=== PATIENT | female | born 1960 | race Caucasian/White ===

== ENCOUNTER 2021-09-09 18:06 | Emergency (ER) | payer OTHER, SELFPAY ==
--- NOTE | 2021-09-09 18:46 | XRR_ITS ---
PROCEDURE INFORMATION: Exam: XR Chest Exam date and time: 09/09/2021 6:46 PM Age: 61 years old Clinical indication: Shortness of breath; Additional info: SOB TECHNIQUE: Imaging protocol: XR of the chest. Views: 1 view. COMPARISON: No relevant prior studies available. FINDINGS: Lungs: Unremarkable. No consolidation. Pleural spaces: Unremarkable. No pleural effusion. No pneumothorax. Heart/Mediastinum: Mild cardiomegaly. Bones/joints: Unremarkable. XR/XR chest 1V portable [id number] IMPRESSION: Mild cardiomegaly, negative for infiltrate
[2021-09-09 19:11] VITALS: BP 132/84; PULSE 86; RESP 21; TEMP 36.6; O2SAT 94
[2021-09-09 20:47] VITALS: BP 138/89; PULSE 72; RESP 20; TEMP 36.9; O2SAT 95
--- NOTE | 2021-09-09 20:51 | ED_ITS ---
HPI - COVID General: Chief Complaint: COVID symptoms Stated Complaint: Covid +\SOB\Fever Time Seen by Provider: 09/09/21 20:41 Source: patient Mode of arrival: ambulatory Limitations: no limitations Triage information: Has fever, cough or shortness of breath . Exposure to COVID + person last 14 days History of Present Illness: HPI Narrative: 61-year-old female states that she has been having cough congestion fever body aches since Wednesday she states she had tested positive for COVID she states her body aches worsening today. She had some slight dyspnea she is in no distress here no hypoxia here she denies any worsening improving factors. COVID 19 common symptoms: positive chills, non-productive cough, body aches and headache(s); negative throat pain, nausea, vomiting or diarrhea COVID 19 other sytmptoms: negative chest pain COVID Results: No Data to Display Review of Systems Const: Reports: chills and body aches Eyes: Denies: blurry vision or eye discomfort ENMT: Denies: throat pain or dental pain Card: Denies: chest pain Resp: Reports: non-productive cough GI: Denies: abdominal pain, nausea, vomiting or diarrhea : Denies: dysuria Musc: Denies: neck pain or back pain Skin/Breast: Denies: rash Neuro: Reports: headache(s) Psych: Denies: depression Soren/Lymph: Denies: easy bruising All/Imm: Denies: urticaria Physical Exam Const: COMMON NORMALS: no acute distress, patient oriented x3 and healthy appearing HENMT: COMMON NORMALS: normocephalic and atraumatic HEAD & SCALP: normocephalic and atraumatic Eye: COMMON NORMALS: Equal, round and reactive pupils present and EOMs intact bilaterally PUPIL: Yes Equal, round and reactive pupils present Neck/C-Spine: COMMON NORMALS: full ROM and supple Chest: COMMONS NORMALS: normal inspection of the chest and normal palpation of entire chest wall Resp: COMMON NORMALS: normal respiratory effort, No retractions, No use of accessory muscles and clear to auscultation bilaterally AUSCULTATION: clear to auscultation bilaterally Cardio: COMMON NORMALS: regular rate, regular rhythm and No murmurs present (Cardio) RATE: regular rate RHYTHM: regular rhythm GI: COMMON NORMALS: Normal to inspection, nondistended, normoactive bowel sounds present, Soft to palpation, non-tender and no masses PALPATION: Yes Soft to palpation Extremity: COMMON NORMALS: normal to inspection and full ROM Neuro: COMMON NORMALS: patient oriented x3, moves all extremities and no focal motor deficits Psych: COMMON NORMALS: mental status grossly normal, Normal thought process present and cooperative THOUGHT PROCESS: Normal thought process present Skin: COMMON NORMALS: no rashes or lesions noted and no wounds GENERAL SKIN EXAM: no rashes or lesions noted Course Vital Signs: Vital signs: Vital Signs Temperature 98.5 F 09/09/21 20:47 Pulse Rate 72 09/09/21 20:47 Respiratory Rate 20 H 09/09/21 20:47 Blood Pressure 138/89 09/09/21 20:47 Pulse Oximetry 95 09/09/21 20:47 MDM - COVID MDM Narrative: Medical decision making narrative: Patient presents here with cough fever headache all likely from COVID she is well-appearing here with no distress no signs of hypoxia we will give her Decadron albuterol inhaler we will set her up for monoclonal antibody infusion she is stable for discharge she is to return if worsening she understands agrees to plan. COVID Results: No Data to Display Discharge Plan Discharge Patient Disposition: Home Clinical Impression: COVID-19 Condition: Stable Prescriptions: New albuterol sulfate 90 mcg/actuation HFA aerosol inhaler 2 inh INHALATION Q6H PRN (Reason: shortness of breath or wheezing) Qty: 8 RF: 0 Discharge Orders: Discharge ED (Routine); Ordered 09/09/21 Ordered By: Cecelia Dominguez Other Ambulatory Orders: Request for MCA (Routine) Timeframe: 1 Day Facility: [facility] - Location: Out[facility] Ordered By: Cecelia Dominguez Discharge Diet: Advance as tolerated Discharge Activity: Resume usual activity Patient Instructions: COVID-19 (Coronavirus Disease 2019) (ED) Coding Level of Care Code 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
[2021-09-09] MEDS: dexamethasone 4 mg Tablet 10 MG PO (21:08)
[2021-09-09] MEDS: naproxen 500 mg Tablet PO (21:09)
[2021-09-09 23:17] VITALS: PULSE 87; RESP 15; O2SAT 95
[2021-09-09 23:30] VITALS: BP 118/76; PULSE 71; RESP 18; TEMP 36.9; O2SAT 95
== END 2021-09-09 23:32 | disposition home or self-care (01) ==
PROVIDERS: Emergency Provider Emergency Medicine
DX: U07.1 COVID-19 (principal)
CPT/HCPCS: 71045; 99283; J8540

== ENCOUNTER 2021-09-15 09:26 | Outpatient (CLI) | payer SELFPAY ==
[2021-09-15 09:40] VITALS: BP 140/82; PULSE 57; RESP 20; TEMP 36.4; O2SAT 98; BMI 34.3
[2021-09-15 10:50] VITALS: BP 119/79; PULSE 58; RESP 19; TEMP 37; O2SAT 98
[2021-09-15 11:50] VITALS: BP 125/80; PULSE 53; RESP 18; TEMP 36.6; O2SAT 99
== END 2021-09-15 09:27 | disposition home or self-care (01) ==
LOC: OPS 09:31
PROVIDERS: Visit Provider Emergency Medicine
DX: U07.1 COVID-19 (principal)
CPT/HCPCS: 96365

== ENCOUNTER 2021-12-23 08:13 | Outpatient (CLI) | payer OTHER, SELFPAY ==
--- NOTE | 2021-12-23 08:23 | MM_ITS ---
WS: [id number] SCREENING DIGITAL BREAST TOMOSYNTHESIS MAMMOGRAM WITH CAD HISTORY: SCREENING COMPARISON: None available. Bilateral CC and MLO with tomosynthesis and synthetic mammography submitted. Computer aided detection analyzed. Breast composition: There are scattered areas of fibroglandular density. Well-circumscribed 6 mm nodu le with a peripheral calcification in the upper-outer quadrant of RIGHT breast at a middle depth. The re is a biopsy clip adjacent but not within this nodule. Recommend further evaluation. There are no p rior studies available for comparison. If these become available additional imaging and may not be ne cessary. MM/[place] [id number] IMPRESSION: BI-RADS: 0-Incomplete: Need additional imaging evaluation FOLLOW UP: Need Additional Imaging RIGHT breast ultrasound, limited. Upper outer quadrant RIGHT breast.
== END 2021-12-23 08:14 | disposition home or self-care (01) ==
LOC: RADSHAW 08:14
PROVIDERS: Visit Provider Physician Assistant
DX: Z12.31 Encounter for screening mammogram for malignant neoplasm of breast (principal)
CPT/HCPCS: 77063; 77067

== ENCOUNTER 2022-01-28 14:28 | Outpatient (CLI) | payer OTHER, SELFPAY ==
--- NOTE | 2022-01-28 14:38 | US_ITS ---
WS: [id number] ULTRASOUND BREAST RIGHT TECHNIQUE: Ultrasound right breast focused area of concern. CLINICAL INFORMATION: ABNORMAL MAMMO COMPARISON: December 23, 2021 FINDINGS: Ultrasound RIGHT breast at the 9 to 12:00 position. Simple cyst at the 10:00 position measuring 6 x 4 x 3 mm and at the 11:00 position measuring 6 x 7 x 4 mm. These have a benign appearance. No suspicio us lesions to target for biopsy. Recommend return to annual screening mammography. US/US breast RT limited* [id number] IMPRESSION: BI-RADS 2 benign Recommend return to annual screening mammography.
== END 2022-01-28 14:29 | disposition home or self-care (01) ==
LOC: RAD 14:35
PROVIDERS: Visit Provider Physician Assistant
DX: R92.8 Other abnormal and inconclusive findings on diagnostic imaging of breast (principal)
CPT/HCPCS: 76642

== ENCOUNTER 2022-12-25 13:31 | Outpatient (CLI) | payer OTHER, SELFPAY ==
--- NOTE | 2022-12-25 13:41 | MM_ITS ---
WS: [id number] BILATERAL 3D TOMOSYNTHESIS DIGITAL SCREENING MAMMOGRAPHY WITH CAD CLINICAL INFORMATION: SCREENING HISTORY: Screening mammogram. No current complaints. COMPARISON: 2021 TECHNIQUE: Bilateral CC and MLO views. FINDINGS: Scattered fibroglandular densities bilaterally. No suspicious focal mass, asymmetry, calcifications, or architectural distortion. No evidence of malignancy. Biopsy clip RIGHT breast. Ovoid nodules RIGHT breast are unchanged. MM/[place] [id number] IMPRESSION: BI-RADS: 2-Benign FOLLOW UP: 1 Year Follow-up Recommend return to annual screening mammography.
== END 2022-12-25 13:32 | disposition home or self-care (01) ==
LOC: RAD 13:35
PROVIDERS: PCP Physician Assistant; Visit Provider Physician Assistant
DX: Z12.31 Encounter for screening mammogram for malignant neoplasm of breast (principal)
CPT/HCPCS: 77063; 77067

== ENCOUNTER 2024-01-05 13:54 | Outpatient (CLI) | payer OTHER, SELFPAY ==
--- NOTE | 2024-01-05 14:02 | MM_ITS ---
WS: [id number] Bilateral screening 3D tomosynthesis digital mammogram, 01/05/2024 Clinical Data: SCREENING Comparison: 12/25/2022, 12/23/2021 Findings: The breast parenchymal pattern shows fibroglandular tissue. No spiculated masses or clustered calcifi cations are seen. There are no secondary signs of carcinoma. There is a biopsy clip in the right bozena ast. MM/[place] [id number] Impression: 1. Negative bilateral mammogram unchanged. 2. Recommend annual screening mammograms. BIRADS: 1-Negative FOLLOW UP: 1 Year Follow-up The CAD tip length checker was used.
== END 2024-01-05 13:55 | disposition home or self-care (01) ==
LOC: RAD 13:54
PROVIDERS: PCP Physician Assistant; Visit Provider Physician Assistant
DX: Z12.31 Encounter for screening mammogram for malignant neoplasm of breast (principal)
CPT/HCPCS: 77063; 77067

== ENCOUNTER 2025-01-06 18:02 | Emergency (ER) | payer OTHER, SELFPAY ==
[2025-01-06 18:15] VITALS: BP 126/84; PULSE 77; RESP 17; TEMP 36.8; O2SAT 94; BMI 36.8
--- NOTE | 2025-01-06 19:01 | XRR_ITS ---
PROCEDURE INFORMATION: Exam: XR Chest Exam date and time: 01/06/2025 7:34 PM Age: 64 years old Clinical indication: Shortness of breath; Additional info: SOB TECHNIQUE: Imaging protocol: Radiologic exam of the chest. Views: 1 view. COMPARISON: CR XR chest 1V portable [id number] 09/09/2021 7:04 PM FINDINGS: Lungs: Lungs are clear. Pleural spaces: There is no pleural effusion or pneumothorax. Heart/Mediastinum: There is mild enlargement of the cardiac silhouette. Bones/joints: Bones are unremarkable. XR/XR chest 1V portable [id number] IMPRESSION: No acute findings.
--- NOTE | 2025-01-06 23:57 | ED_ITS ---
HPI - General Adult General: Chief complaint: General Medical Stated complaint: generalized pain, cough, wheezing Time Seen by Provider: 01/06/25 22:24 Source: patient Mode of arrival: ambulatory Limitations: no limitations History of Present Illness: Patient is a 64-year-old female that presents to the emergency department with frontal headache, congestion, cough, wheezing that has been going on for the past 5 to 6 days. She denies any known fever. She denies any significant ear pain. She does report pain and tenderness along her forehead and cheekbone region. She denies any nausea or vomiting. She does report some abdominal aches when she coughs but denies any tenderness otherwise. She presents to the emergency department for further evaluation and treatment. Associated symptoms: Reports headache(s) (Frontal); Deny chest pain, dyspnea, nausea, rash or vomiting Related Data Previous Rx's ?Medication ?Instructions ?Recorded albuterol sulfate 90 mcg/actuation 2 inh inhalation .q 4-6h PRN 01/07/25 aerosol inhaler (Ventolin HFA) shortness of breath or wheezing #6.7 grams amoxicillin 875 mg-potassium 1 tab PO BID #19 tabs clavulanate 125 mg tablet Allergies Allergy/AdvReac Type Severity Reaction Status Date / Time No Known Allergies Allergy Verified 09/09/21 23:14 Review of Systems General: Reports: 10 or more systems reviewed and unremarkable except in HPI and below Const: Reports: chills; Denies: fever(s) Eyes: Denies: change in vision ENMT: Reports: nasal congestion and sinus pain; Denies: throat pain Card: Denies: chest pain Resp: Reports: productive cough and wheezing; Denies: dyspnea GI: Reports: abdominal pain; Denies: nausea or vomiting : Denies: flank pain, difficulty voiding or dysuria Musc: Reports: neck pain and back pain (Achy); Denies: muscle weakness Skin/Breast: Denies: rash or erythema Neuro: Reports: headache(s) (Frontal); Denies: numbness in extremities or weakness in extremities Psych: Denies: anxiety Endo: Denies: polyuria or polydipsia Soren/Lymph: Denies: easy bruising or petechiae All/Imm: Denies: tongue swelling or facial swelling [facility] ED PFSH: Medical History (Updated 01/07/25 @ 00:10 by CARMELA Sanchez) Bronchitis Social History (Updated 01/07/25 @ 00:04 by CARMELA Sanchez) Smoking and tobacco/nicotine status: never used tobacco/nicotine Physical Exam Const: COMMON NORMALS: no acute distress, no limitations and alert GENERAL APPEARANCE: cooperative HENMT: COMMON NORMALS: normocephalic, atraumatic, external ears normal and Normal external nose present HEAD & SCALP: normocephalic and atraumatic FACE & SINUS: normal facial exam and sinus tenderness frontal and maxillary NOSE: Normal external nose present EXTERNAL EAR: Yes external ears normal THROAT: posterior oropharynx normal Eye: COMMON NORMALS: conjunctivae normal CONJUNCTIVA: Yes conjunctivae normal Neck/C-Spine: COMMON NORMALS: full ROM, supple and no meningeal signs GENERAL: No tender Resp: COMMON NORMALS: normal respiratory effort AUSCULTATION: no crackles, no rales and wheezes GI: COMMON NORMALS: Normal to inspection, nondistended, normoactive bowel sounds present, Soft to palpation and non-tender (There is no abdominal tenderness on exam) PALPATION: Yes Soft to palpation : COMMON NORMALS: Yes no CVA tenderness BLADDER/KIDNEY EXAM: Yes no CVA tenderness Back/Pelvis: COMMON NORMALS: no CVA tenderness Extremity: COMMON NORMALS: normal to inspection, full ROM, no calf tenderness and no pedal edema Neuro: SENSORIUM/ORIENTATION: Yes alert MENINGEAL SIGNS: Yes no meningeal signs Psych: COMMON NORMALS: cooperative Skin: COMMON NORMALS: no rashes or lesions noted and no petechiae GENERAL SKIN EXAM: no rashes or lesions noted Course Vital Signs: Vital signs: Vital Signs Temperature 98.3 F 01/06/25 18:15 Pulse Rate 77 01/06/25 18:15 Respiratory Rate 17 01/06/25 18:15 Blood Pressure 126/84 01/06/25 18:15 Pulse Oximetry 94 01/06/25 18:15 Oxygen Delivery Me thod Room Air 01/06/25 18:15 [facility] - General Adult Medical Decision Making Patient was advised of the exam and imaging findings. Thankfully, the patient does not have any pneumonia on the x-ray. She does have some some wheezing noted on exam. She also has sinus tenderness over the frontal and maxillary sinuses. I am concerned she may have bacterial sinusitis. She also has acute bronchitis. I recommended she use the medications as directed, the albuterol inhaler as directed and follow-up with her primary care provider in 1 week for recheck. I advised that she use qtbr-zgb-dpobfan Tylenol or ibuprofen for the body aches and return to the emergency department with any worsening symptoms. The patient expressed understanding. Differential Diagnosis Acute sinusitis, pneumonia, acute bronchitis, myalgia, viral respiratory infection Lab Data Radiology Impressions Chest X-Ray 01/06/25 19:01 IMPRESSION: No acute findings. All radiology interpretation(s) finalized by discharge Critical Care Time Critical Care Time: Critical Care Time: No Discharge Plan Discharge Patient Disposition: Home Clinical Impression: Acute bacterial sinusitis, Myalgia, Wheezing Acute bronchitis Qualifiers: Bronchitis organism: unspecified organism Qualified Code(s): J20.9 - Acute bro nchitis, unspecified Condition: Stable Prescriptions: New albuterol sulfate [Ventolin HFA] 90 mcg/actuation HFA aerosol inhaler 2 inh inhalation .q4-6h PRN (Reason: shortness of breath or wheezing) Qty: 6.7 0RF amoxicillin-pot clavulanate 875-125 mg tablet 1 tab PO BID Qty: 19 0RF Discontinued albuterol sulfate 90 mcg/actuation HFA aerosol inhaler 2 inh INHALATION Q6H PRN (Reason: shortness of breath or wheezing) Qty: 8 0RF Discharge Orders: Discharge ED (Routine); Ordered 01/07/25 Ordered By: Dipesh Reid Referrals: Jimena Garcia PA [Primary Care Provider, Physicians Subassembly Assembler] Discharge Diet: Usual diet Discharge Activity: Resume usual activity Patient Instructions: Opioid Safety, Pain Management, Sinusitis (ED), Sodium Ch loride (Into the nose) ([facility], [place] Allergy and Sinus,..., Acute Bronchitis (ED) Activity Restrictions/Additional Instructions: Use the medications as directed. Your prescriptions were sent electronically to the [facility] pharmacy in [place]. Rest, increase fluids. Elyb-xpv-ryygofp saline nasal rinses/sprays as directed. Tjjk-sqa-rojktwh Tylenol as directed for body aches. Follow-up with your primary care provider on Wednesday as scheduled. Return to the emergency department with any worsening symptoms. 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
[2025-01-07] MEDS: amoxicillin-clav 875-125 mg Tablet 1 TAB PO (00:55)
== END 2025-01-07 01:03 | disposition home or self-care (01) ==
PROVIDERS: Emergency Provider Physician Assistant; PCP Physician Assistant
DX: J01.90 Acute sinusitis, unspecified (principal); B96.89 Other specified bacterial agents as the cause of diseases classified elsewhere; M79.10 Myalgia, unspecified site; R06.2 Wheezing; J20.9 Acute bronchitis, unspecified
CPT/HCPCS: 12345; 71045; 99283; J9999

== ENCOUNTER 2025-01-16 08:59 | Outpatient (CLI) | payer OTHER, SELFPAY ==
--- NOTE | 2025-01-16 09:03 | MM_ITS ---
WS: [id number] BILATERAL 3D TOMOSYNTHESIS DIGITAL SCREENING MAMMOGRAPHY WITH CAD CLINICAL INFORMATION: SCREENING HISTORY: Screening mammogram. No current complaints. COMPARISON: 2023 TECHNIQUE: Bilateral CC and MLO views. FINDINGS: Scattered fibroglandular densities bilaterally. No suspicious focal mass, asymmetry, calcifications, or architectural distortion. No evidence of malignancy. RIGHT breast biopsy clip MM/MM scr BI tomosynthesis [id number] IMPRESSION: DENSITY: There are scattered areas of fibroglandular density. BI-RADS: 2 - Benign. FOLLOW UP: 1 Year Follow-up Recommend return to annual screening mammography.
== END 2025-01-16 09:00 | disposition home or self-care (01) ==
PROVIDERS: PCP Physician Assistant; Visit Provider Physician Assistant
DX: Z12.31 Encounter for screening mammogram for malignant neoplasm of breast (principal); R92.323 Mammographic fibroglandular density, bilateral breasts
CPT/HCPCS: 77063; 77067

== ENCOUNTER 2025-01-17 08:27 | Outpatient (CLI) | payer OTHER, SELFPAY ==
--- NOTE | 2025-01-17 08:32 | FL_ITS ---
WS: [id number] Barium swallow and esophagram, 01/17/2025 Clinical Data: ESOPHAGEAL DYSPHAGIA Comparison: None. Fluoroscopy time: 1min [id number] # of spot films: 6 Findings: The patient swallowed the thick and thin barium, and it flowed through the hypopharynx without hesitation. No stricture, mass, polyp or erosion was seen. No aspiration or penetration occurred. Osteoarthritis of the vertebral bodies impinge slightly onto the posterior hypopharynx. The barium entered the esophagus and there was poor motility throughout. There was a small sliding hiatal hernia with mild gastroesophageal reflux. No polyp, mass, erosion, ulceration, extravasation or fistula was seen. The barium flowed normally into the stomach. FL/FL barium swallow [id number] Impression: 1. Moderate osteoarthritis of the cervical vertebral bodies impinging on the po sterior hypopharynx. 2. Poor esophageal motility. 3. Small hiatal hernia with moderate gastroesophageal reflux.
== END 2025-01-17 08:28 | disposition home or self-care (01) ==
PROVIDERS: PCP Physician Assistant; Visit Provider Electrodiagnostic Medicine
DX: R13.19 Other dysphagia (principal); M47.892 Other spondylosis, cervical region; K44.9 Diaphragmatic hernia without obstruction or gangrene; K21.9 Gastro-esophageal reflux disease without esophagitis; K22.4 Dyskinesia of esophagus
CPT/HCPCS: 74220

== ENCOUNTER 2025-01-29 08:26 | Outpatient (CLI) | payer OTHER, SELFPAY ==
[2025-01-29 08:45] VITALS: BMI 36.8
--- NOTE | 2025-01-29 08:45 | ECG_ITS ---
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 Interpretive Statements Lung unchanged pre/post procedure; Intraprocedure shortess of breath; Symptoms resoled by discharge PROCEDURE: At the baseline, the EKG revealed sinus bradycardia with a rate of 55 bpm. Some nonspecific T wave changes.. The baseline heart was 55 bpm with a blood pressue of 132/80 mm of Hg Lexiscan was infused over a period of 20 seconds. A total of 0.4 milligrams of Lexiscan was infused. The stress phase was continued for a total of 5 minutes. Heart rate at the end of the stress phase was 62 bpm with a blood pressure 140/80 mm of Hg. The EKG at the peak infusion revealed no significant changes. Sestamibi was injected 20 seconds after the Lexiscan infusion. Heart rate at the end of the recovery phase was 58 bpm with a blood pressure of 198/78 mm of Hg. CONCLUSION: 1. No significant EKG changes with the LexiScan infusion 2. No LexiScan induced chest pain or cardiac arrhythmia 3. Normal blood pressure and heart rate response 4. Sestamibi/sestamibi perfusion scan pending; see separate report. Electronically Signed On 01-31-2025 22:54:18 CDT by Rodney Stein M.D. [email or web address]
--- NOTE | 2025-01-29 08:46 | NMCV_ITS ---
NM arturo perf SPECT r/s* [id number] Alicia Gudino Age: 64 Gender: F : 1960 Exam Date: 01/29/2025 09:24 Ordering Phys: Jimena Garcia Technologist: ADOLFO Brink Exam Location: [facility] Indications: cp STRESS TEST Please see separate stress test report in [facility] for full findings IMAGE PROTOCOL Rest/Stress 1 Lexiscan Day Radiopharmaceutical Dose (mCi) Administration Site Administered by Rest: Tc-99m 10.7 IV Laurel Church, SUPPORT TEACHER Sestamibi Stress:Tc-99m 32.8 IV Laurel Lynnette, SUPPORT TEACHER Sestamibi Rest: 29-Jan-2025 60 Discovery 630 Stress: 29-Jan-2025 30 Discovery 630 0.4mg Lexiscan. Images obtained in supine and prone position. SPECT RESULTS Technical Quality: Good Raw Data Analysis: Normal Image Corrections: No attenuation or motion correction applied Summed Stress Score: 4 Summed Rest Score: 1 Summed Difference Score: 4 PERFUSION FINDINGS Small area of mildly decreased tracer uptake involving the mid inferolateral and apical lateral region with significant reversibility, . A small area of decreased tracer uptake also was noted in the mid anterior region, slightly reversibility FUNCTIONAL RESULTS (calculated via Gated SPECT) Stress Image LV EF (%): 63 Stress EDV (mL):95 TID: 1.05 Stress ESV (mL):35 FUNCTIONAL FINDINGS: Segmental wall motion analysis revealing no gross wall motion abnormalities IMPRESSIONS 1. Myocardial perfusion imaging revealing small area reversible defect involving the inferolateral and apical lateral region suggesting ischemia in the distribution of the left circumflex artery. Small area of slight reversibility in the mid anterior region, most likely artifactual 2. Normal ejection fraction of 63%. 3. LV wall motion analysis revealing no gross wall motion abnormalities. 4. Normal LV volume No similar previous studies are available for comparison Dr Rodney Stein MD [facility] (Electronically Signed) Final Date: 29 January 2025 16:14 S
[2025-01-29] MEDS: regadenoson 0.4 Mg/5 ml Syringe IVP (09:52)
[2025-01-29 10:02] VITALS: BP 119/78; PULSE 58
== END 2025-01-29 08:27 | disposition home or self-care (01) ==
LOC: CDL 08:27
PROVIDERS: PCP Physician Assistant; Visit Provider Physician Assistant
DX: I20.89 Other forms of angina pectoris (principal); R93.1 Abnormal findings on diagnostic imaging of heart and coronary circulation
CPT/HCPCS: 36415; 78452; 93017; 96374; A9500; J2785

== ENCOUNTER → 2025-03-19 10:16 | Outpatient (BNVA) | payer OTHER, SELFPAY | PROVIDERS: PCP Physician Assistant; Referring Provider Physician Assistant; Visit Provider Internal Medicine Cardiovascular Disease | DX: R07.9 Chest pain, unspecified (principal); R00.1 Bradycardia, unspecified; I44.0 Atrioventricular block, first degree; R94.31 Abnormal electrocardiogram [ECG] [EKG]; I10 Essential (primary) hypertension; R94.39 Abnormal result of other cardiovascular function study; E78.5 Hyperlipidemia, unspecified | CPT/HCPCS: 36415; 80048; 80053; 80061; 83880; 85025; 93005 ==

== ENCOUNTER 2025-04-04 08:57 | Outpatient (CLI) | payer OTHER, SELFPAY ==
[2025-04-04] VITALS (14 sets, daily range): BP systolic 127–139; BP diastolic 63–81; PULSE 49–63; RESP 12–22; TEMP 36.7; O2SAT 91–96; BMI 36.8
--- NOTE | 2025-04-04 09:00 | XACV_ITS ---
Exam Room: 2 Ht: 163 cm Wt: 98 kg BSA: 2.14 m2 Gender: Female : 1960 Any Known Allergies: No known allergies Exam Priority: Routine Procedure(s): Procedure Description: Diagnostic procedure Procedure Description: Left Heart Catheterization Procedure Description: Left ventriculography Procedure Description: Coronary Angiography MEETAReji Keys; Diagnostic Cath Status: Elective Diagnostic Findings * No disease noted in the Left Main, Left Anterior Descending, Right, or Circumflex coronary arteries. * Coronary angiography shows right dominance. Conclusions 1. No disease noted in the Left Main, Left Anterior Descending, Right, or Circumflex coronary arteries. 2. All hansen are normal. 3. Normal left ventricular systolic function. Ejection fraction of 55%. Recommendations * Continue current medical management and risk factor modification. Diagnostic RX Recommendation: medical therapy and/or counseling LV EDP: 23 mmHg Ventriculography Ejection Fraction: 55.0 % Pressures Phase:Rest AO : 138 / 76 ( 103 ) @ 12:18:00 PM 139 / 76 ( 103 ) @ 12:18:00 PM LV : 132 / 6 / 23 @ 12:16:00 PM 134 / 4 / 24 @ 12:18:00 PM 132 / 0 / 20 @ 12:18:00 PM Valves Phase:DefaultPhase AV : 0.0 @ 11:22:44 AM AV Mean Gradient: 0.0 @ 11:22:44 AM 0.0 @ 11:22:44 AM Clinical Evaluation EBL: 5mL-10mL Procedural Details Procedure Consent Obtained. Current Diagnosis : Chest Pain. Pre-Procedure Time Out. Identified patient by full name and date of as verbalized by the patient/guarantor. Does the consent match the physician's order: Yes. Accurate & Complete Informed Consent: Yes. Inpatient/Outpatient History & Physical on Chart: Yes. If H&P is completed, is and addenduem needed: No; If yes, is the addendum complete: N/A. Visualize and Verify Site with Patient/Guarantor: N/A. Relevant Radiology Images available: Yes. Pre-op teaching completed and patient verbalized understanding. The risks, benefits, and alternatives of sedation and/or procedure were discussed by physician. The patient agrees to continue. Procedure started. [facility] Clinical Fraility Score: 3: Managing Well. 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 Chest Pain Symptom Assessment: Typical Angina Symptoms. Correct patient, site and procedure confirmed by cath team. Current diagnosis: Chest Pain. PERRLA. Strong, equal hand low heel builder bilaterally. Lungs clear x 5 lobes. IV Site on Arrival: 20 gauge in the right anticubital. IV Fluids: 0.9% NaCl at KVO. 0 mL infused prior to [facility]. Pre Procedural Pulses: bilateral dorsalis pedis was 3+. Pre Procedural Pulses: bilateral posterior tibial was 3+. Pre Procedural Pulses: bilateral radial was 3+. Oxygen started at 2liters/min via nasal canula. right groin was prepped with chloroprep then draped in the usual sterile fashion. right radial was prepped with chloroprep then draped in the usual sterile fashion. Baseline sample Acquired. HR: 59 BPM. Physician arrived. Physician scrubbed in. Immediate Pre-Procedure Time Out. Correct Patient: Yes; Correct Procedure: Yes; Correct Site: Yes; Correct Patient Position: Yes; Correct Supplies: Yes; Dried Flammable Prep: Yes; Blood Products Available: N/A;. Lidocaine 1% infiltrated to the right radial. Arterial access obtained. A 5 moroccan Jared catheter in over wire. Multiple views taken of right coronary artery. Catheter redirected to the LCA. Multiple views taken of left coronary artery. Catheter removed over the exchange wire. A 5 moroccan Angled Pig catheter in over wire. EDP Sample taken: LV 132/6,23; HR: 57 BPM; SpO2: 96%. LV gram performed in [place] @ 10 mL/second for a total of 30 mL. EDP Sample taken: LV 134/4,24; HR: 63 BPM; SpO2: 96%. Pullback taken: LV 132/0,20; AO 138/76(103); Mean: 0mmHg, Peak to Peak: 0mmHg, SEP: 7sec/min; HR: 66 BPM; SpO2: 97%. Catheter removed over the exchange wire. Physician scrubbed out. Vital chart was stopped. A TR Band was successful obtaining hemostatsis at the Right Radial artery insertion site. Post Procedure: Pulses reassessed and unchanged. PERRLA. Strong, equal hand low heel builder bilaterally. No VTE prophylaxis required. Medication's Wasted: Lidocaine 1% = 18 mL. Medication's Wasted: Nitro = 49.8 mcg. Medication's Wasted: Heparin = 1000 units. Total IV fluids: 75 mL. Post-op diagnosis: Normal Coronaries. Complications: None. Estimated blood loss: 5mL-10mL. Responsiveness - Normal response to verbal stimuli; alert and oriented, PERRLA. Airway - Unaffected, no intervention required; spontaneous ventilation. Circulation: W/N/L, pulses unchanged. Nausea/Vomiting: No. Procedure completed. Patient transferred by wheelchair to 1st floor. Access Site Site: Right Radial artery Sheath Size: 6 Fr Hemostasis Method: TR Band Hemostasis Success: Successful Procedure Medications Start: 10:55 AM Stop: 10:55 AM Medication: Fentanyl Amount: 50 mcg Route: I.V. Start: 10:56 AM Stop: 10:56 AM Medication: Versed Amount: 1 mg Route: I.V. Start: 11:06 AM Stop: 11:06 AM Medication: Nitrogylcerin Amount: 200 mcg Route: I.A. Start: 11:08 AM Stop: 11:08 AM Medication: Heparin Amount: 5000 units Start: 11:18 AM Stop: 11:18 AM Medication: Versed Amount: 1 mg Route: I.V. Start: 11:18 AM Stop: 11:18 AM Medication: Fentanyl Amount: 50 mcg Route: I.V. I, the attending physician, have reviewed and verified all procedure medications. Yes, all medications given per verbal order History/Risk Factors Hypertension: No Dyslipidemia: No Peripheral Arterial Disease (PAD): No Myocardial Infarction (SD): No Obesity: Yes Renal Disease: No Tobacco Use: Never Prior Interventions PCI: No CABG: No Valve Surgery: No Report Signatures Finalized by Donis Keys MD on 04/04/2025 11:40 AM
--- NOTE | 2025-04-04 10:56 | W.PM.OPSUD ---
Surgery/Procedure H&P Update DATE OF PROCEDURE: April 04, 2025 DATE H&P PERFORMED: 03/19/25 H&P UPDATE INFORMATION: I have reviewed H&P completed within last 30 days, I have examined patient prior to procedure and No changes to prior documentation PREOP DIAGNOSIS: Chest pain/fatigue/abnormal stress PRIMARY INDICATION FOR PROCEDURE: Chest pain/fatigue/exertional shortness of breath/abnormal stress PLANNED PROCEDURE: Operation Date: 04/04/25 10:00 Proposed Procedures p Cardiac Catheterization - C w/wo LV & Coros(Left) - Donis Keys MD PATIENT REASSESSED PRIOR TO SEDATION, WITH NO CHANGE NOTED: Yes PHYSICAL EXAM: alert, oriented x 3, clear to auscultation bilaterally, regular rate & rhythm and operative site marked AIRWAY EVAL/ANESTHESIA PLAN: ASA II, Risks, benefits & alternatives of sedation and/or procedure discussed and Patient agrees to continue as planned ADDITIONAL INFORMATION: All risk-benefit and alternative for the procedure has been explained to the patient. Patient understand 2% risk of stroke major bleed. Patient understood 5% risk of contrast-induced nephropathy urgent emergent vascular bypass surgery pseudoaneurysm hematoma and bruising. She would like to proceed with it.
--- NOTE | 2025-04-04 11:55 | PC.NURSE ---
patient arrived on floor at 1134am. Family member at bedside. Patient is drowsy. TR band in place with 17ml of air. No hematoma noted.
== END 2025-04-04 15:07 | disposition home or self-care (01) ==
LOC: CCL 11:30 → CSU 11:35
PROVIDERS: PCP Physician Assistant; Visit Provider Internal Medicine Cardiovascular Disease
DX: I20.9 Angina pectoris, unspecified (principal); I25.9 Chronic ischemic heart disease, unspecified; R94.39 Abnormal result of other cardiovascular function study; I10 Essential (primary) hypertension; E78.5 Hyperlipidemia, unspecified; Z79.82 Long term (current) use of aspirin; K21.9 Gastro-esophageal reflux disease without esophagitis
CPT/HCPCS: 36415; 93458; 99152; 99153; C1769; C1887; C1894; J1644; J2250; J3010; J3490; J7030; J9999; Q0163; Q9967

== ENCOUNTER → 2025-04-24 16:18 | Outpatient (BNVA) | payer OTHER, SELFPAY | PROVIDERS: PCP Physician Assistant; Visit Provider Nurse Practitioner Family | DX: R94.39 Abnormal result of other cardiovascular function study (principal); I10 Essential (primary) hypertension; E78.5 Hyperlipidemia, unspecified | CPT/HCPCS: 36415; 80048 ==

== ENCOUNTER 2025-05-11 07:20 | Outpatient (CLI) | payer OTHER, SELFPAY ==
--- NOTE | 2025-05-11 06:30 | USCV_ITS ---
Alicia Gudino Age: 65 Gender: F : 1960 Exam Date: 05/11/2025 08:19 Ordering Phys: Patrice Garcia MD ([email or web address]) Technologist: SHILOH Exam Location: [facility] [place] Indication: sob BP: 118 / 70 HR: 63 Rhythm: Sinus Technical Quality: Adequate MEASUREMENTS (Male / Female) Normal Values 2D ECHO LVOT Diameter 2.1 cm LV Ejection Fraction MOD 4C 55.3 % LV Ejection Fraction MOD 2C 55.5 % LV Ejection Fraction 2C AL 56.0 % LA Diameter 3.2 cm RA Systolic Volume 4C AL 19.9 ml RA Systolic Volume 4C MOD 19.2 ml LA Sys Volume AL 26.2 cm cubed LA Sys Volume Index AL 12.3 cm cubed/m squared Aorta at Sinotubular Diameter 2.1 cm IVC Diameter 1.4 cm M-MODE LA Ao Ratio MM 1.6 AV Cusp Separation MM 2.2 cm DOPPLER AV Peak Velocity 113.0 cm/s LVOT Peak Velocity 87.0 cm/s AV Area Cont Eq vti 2.8 cm squared AV Area Cont Eq pk 2.7 cm squared MV Peak Velocity 79.0 cm/s MV Area PHT 3.7 cm squared Mitral E to A Ratio 0.7 TV Peak Velocity 209.3 cm/s TR Peak Velocity 252.0 cm/s TR Peak Gradient 25.4 mmHg TR Mean Velocity 194.0 cm/s TR Mean Gradient 16.4 mmHg TR Velocity Time Integral 78.6 cm PV Peak Velocity 78.0 cm/s RV Ejection Time 0.3 s FINDINGS Left Ventricle Normal left ventricular size and systolic function, EF 55%. Mild septal hypertrophy. Normal diastolic function. Right Ventricle Normal right ventricular size and systolic function. Normal right ventricular systolic pressure. Right Atrium Normal right atrial size. Left Atrium Normal left atrial size. Mitral Valve No mitral valve stenosis. Structurally normal mitral valve. Trace mitral valve regurgitation. Aortic Valve No aortic valve stenosis. No aortic valve regurgitation. Tricuspid Valve Trace tricuspid valve regurgitation. Pulmonic Valve Trace pulmonary valve regurgitation. Pericardium No pericardial effusion. Aorta Normal size aortic root and proximal ascending aorta. IVC Normal inferior vena cava. CONCLUSIONS 1.Normal left ventricular size and systolic function, EF 55%. 2.Mild septal hypertrophy. 3. Normal LV diastolic function. 4. Normal RV size and function. 5. Normal RVSP 6. No significant valvular abnormalities. Patrice Garcia MD, FACC (Electronically Signed) Final Date: 17 May 2025 20:34 S
== END 2025-05-11 07:21 | disposition home or self-care (01) ==
LOC: RAD 07:21
PROVIDERS: PCP Physician Assistant; Visit Provider Internal Medicine Cardiovascular Disease
DX: R06.02 Shortness of breath (principal); I51.89 Other ill-defined heart diseases
CPT/HCPCS: 93306